=== PATIENT | female | born 1945 | race Caucasian/White ===

== ENCOUNTER 2021-05-08 22:34 | Emergency (ER) | payer MEDICARE ==
[2021-05-08 22:57] VITALS: O2SAT 95
[2021-05-09 00:26] LABS: Absolute Neutrophil Ct (ANC) 6.32 (1.4-6.9); BASOPHIL % 0.3 % (0.0-0.4); Basophil (Absolute #) 0.03 (0-0.4); Eosinophil % 1.3 % (0.00-5.0); Eosinophil (Absolute #) 0.12 (0-0.5); Hematocrit 35.5 % (35-47); Hemoglobin 11.3 gm/dl (12.0-16.0); Lymphocytes % 24.3 % (24.0-44.0); Mean Cell Volume 95.7 fl (78-100); Mean Corpuscular Hemoglobin 30.5 pg (26-32); Mean Corpuscular Hgb Concent. 31.8 g/dl (32-36); Mean Platelet Volume 8.5 fl (7.5-11.0); Monocyte (Absolute #) 0.71 (0.0-1.3); Monocytes % 7.5 % (0.0-12.0); Neutrophil % 66.6 % (36.0-66.0); Platelet Count 523 K/mm3 (150-450); Red Blood Count 3.71 M/mm3 (4.1-5.4); White Blood Count 9.5 K/mm3 (4.0-10.5)
[2021-05-09 00:40] LABS: ALKALINE PHOSPHATASE 68 U/L (38-126); ANION GAP 12.7 MEQ/L (5-15); BLOOD UREA NITROGEN 14 mg/dL (7-17); CHLORIDE 97 mmol/L (98-107); Calcium 9.3 mg/dL (8.4-10.2); Carbon Dioxide 24 mmol/L (22-30); Creatinine 1 0.58 mg/dL (0.52-1.04); EST GLOMERULAR FILTRATION RATE > 60.0 ML/MIN; Glucose 168 mg/dL (74-106); LIPASE 61 U/L (23-300); Potassium 3.7 mmol/L (3.5-5.1); SGOT/AST 20 U/L (14-36); SGPT/ALT 10 U/L (0-35); SODIUM 130 mmol/L (137-145); Total Protein 6.5 g/dL (6.3-8.2)
[2021-05-09 00:40] LABS: Appearance SLIGHTLY CLOUDY (CLEAR); Bilirubin NEGATIVE (NEGATIVE); Blood SMALL Ery/ul (0-5); Epithelial Cells RARE /HPF (FEW); Glucose NEGATIVE (NEGATIVE); Ketones NEGATIVE (NEGATIVE); Leukocyte Esterase NEGATIVE (NEGATIVE); Mucus SLIGHT /HPF (NEGATIVE); Nitrite NEGATIVE (NEGATIVE); Protein,Urine Dip NEGATIVE (Negative); RBC 0-2 /HPF (0-2); Urobilinogen NEGATIVE mg/dL (0-1)
--- NOTE | 2021-05-09 01:09 | ERPHSYRPT ---
- History of Present Illness Time Seen by Provider: 05/08/21 23:00 Source: patient Patient Subjective Stated Complaint: Patient states " I have been having right side/flank pain for the last 2 weeks. I have been to the [facility] and to my AURICULAR THERAPIST and I just had my urine checked today and they said it was fine. I do have a gall bladder ultrasound scheduled for Friday. I have been on 3 different ATB s allegra March and I am starting to get aggravated with the pain and why its not getting any better." Triage Nursing Assessment: Patient arrived to ED and ambulated to room without difficulty. Gait steady. Patient A/O times 4. Patient able to follow instructions without difficulty. Lungs clear bilateral A/P throughout. Patient denies SOB but does state when she takes in a breath that is when her right side/flank flares up with sharp pains. Patient denies chest pain. + BS times 4 quads. ABD sof, round, non-distended. Upon palpitation and pushing into ABD patient denies any pain or discomfort. Patient states she does have a HX of constipation. Patient states her last BM was yesterday and it was normal for her. Patient states her appetite and fluid intake has been normal. Patient denied any pain or burning upon urination. Urine collected upon arival and clear yellow color noted. No odor present. + Radial and pedal pulses noted bilateral. No dependent edema noted. Patient V/S upon arrival WNL. Physician History: Patient is a 76-year-old female presents to our emergency department for evaluation of right-sided flank pain. Patient states that symptoms started approximately 2 weeks ago. She had a UA performed at an urgent care. Patient w as advised she had a urinary tract infection. Patient states she was treated with antibiotics with short-term improvement in symptoms resolved. Patient followed up with her primary care doctor who advised her to have a gallbladder ultrasound and abdominal x-ray. Patient is here tonight because she is frustrated that the pain is not improving. Patient is otherwise healthy. No trauma. No fever. No nausea or vomiting. Patient had a bowel movement yesterday which was reportedly normal. No bloody nonbilious. Patient voices no other complaints or concerns at this time. Timing/Duration: week(s) (2 weeks) Severity: moderate Modifying Factors: Improves With: nothing Associated Symptoms: denies symptoms Allergies/Adverse Reactions: No Known Drug Allergies Allergy (Unverified 05/08/21 22:57) Home Medications: Metformin HCl [Glucophage Xr] 500 mg PO DAILY 11/30/13 [History] Oxybutynin Chloride [Oxybutynin Chloride ER] 10 mg PO DAILY 05/08/21 [History] Pravastatin Sodium 20 mg PO DAILY 05/08/21 [History] lisinopriL [Zestril] 2.5 mg PO DAILY 05/08/21 [History] Hx Tetanus, Diphtheria Vaccination/Date Given: No Hx Influenza Vaccination/Date Given: Yes Hx Pneumococcal Vaccination/Date Given: No Immunizations Up to Date: Yes Travel Risk - International Travel Have you traveled outside of the country in past 3 weeks: No - Coronavirus Screening Are you exhibiting any of the following symptoms?: No Close contact with a COVID-19 positive Pt in past 14-21 Days: No - Vaccine Status Have you recieved a Covid-19 vaccination: Yes 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 - Vaccination Dates Date of 2cond Vaccination (if applicable): 01/29/21 - Review of Systems Constitutional: No Symptoms, No Fever, No Chills Eyes: No Symptoms Ears, Nose, & Throat: No Symptoms Respiratory: No Symptoms, No Cough, No Dyspnea Cardiac: No Symptoms, No Chest Pain, No Edema, No Syncope Abdominal/Gastrointestinal: No Symptoms, No Abdominal Pain, No Nausea, No Vomiting, No Diarrhea Genitourinary Symptoms: No Symptoms, No Dysuria Musculoskeletal: No Symptoms, No Back Pain, No Neck Pain Skin: No Symptoms, No Rash Neurological: No Symptoms, No Dizziness, No Focal Weakness, No Sensory Changes Psychological: No Symptoms Endocrine: No Symptoms Hematologic/Lymphatic: No Symptoms Immunological/Allergic: No Symptoms All Other Systems: Reviewed and Negative - Past Medical History Pertinent Past Medical History: Yes Neurological History: No Pertinent History ENT History: No Pertinent History Cardiac History: High Cholesterol, Hypertension Respiratory History: No Pertinent History Endocrine Medical History: Diabetes Type II Musculoskeletal History: No Pertinent History GI Medical History: No Pertinent History History: No Pertinent History Psycho-Social History: No Pertinent History Female Reproductive Disorders: No Pertinent History - Past Surgical History Past Surgical History: Yes Neuro Surgical History: No Pertinent History Cardiac: No Pertinent History Respiratory: No Pertinent History Gastrointestinal: No Pertinent History Genitourinary: No Pertinent History Musculoskeletal: No Pertinent History Female Surgical History: No Pertinent History, Other Other Surgical History: HX Cyst taken off ovary - Social History Smoking Status: Never smoker Exposure to second hand smoke: Yes Drug Use: none Patient Lives Alone: No - Female History Hx Last Menstrual Period: POST Hx Now: No - Nursing Vital Signs Nursing Vital Signs: Initial Vital Signs Temperature 98.1 F 05/08/21 22:55 Pulse Rate 86 05/08/21 22:55 Respiratory Rate 18 05/08/21 22:55 Blood Pressure 144/97 05/08/21 22:55 O2 Sat by Pulse Oximetry 95 05/08/21 22:55 Pain Scale Pain Intensity 6 - Physical Exam General Appearance: no apparent distress, alert Eye Exam: PERRL/EOMI, eyes nml inspection Ears, Nose, Throat Exam: normal ENT inspection, TMs normal, pharynx normal, moist mucous membranes Neck Exam: normal inspection, non-tender, supple, full range of motion Respiratory Exam: normal breath sounds, lungs clear, No respiratory distress Cardiovascular Exam: regular rate/rhythm, normal heart sounds, normal peripheral pulses Gastrointestinal/Abdomen Exam: soft, normal bowel sounds, No tenderness, No mass Back Exam: normal inspection, normal range of motion, No CVA tenderness, No vertebral tenderness Extremity Exam: normal inspection, normal range of motion, pelvis stable Neurologic Exam: alert, oriented x 3, cooperative, normal mood/affect, nml cerebellar function, nml station & gait, sensation nml, No motor deficits Skin Exam: normal color, warm, dry, No rash Lymphatic Exam: No adenopathy SpO2 Interpretation: normal SpO2: 95 O2 Delivery: Room Air - Course Nursing assessment & vital signs reviewed: Yes EKG Interpreted by Me: RATE (73), Sinus Rhythm, NORMAL AXIS, NORMAL INTERVALS - CT Exams Chest CT Interpretation: Tele-radiologist Report (No early embolic disease. Mild cardiomegaly. Small hiatal hernia atherosclerotic disease of the coronary arteries. Multilevel degenerative disease of the thoracic spine. Osteopenia) Ordered Tests: Active Orders 24 hr Category Date Time Status EKG-ER Only STAT Care 05/08/21 23:59 Active IV Insertion STAT Care 05/08/21 23:59 Active ABDOMEN AND PELVIS W CONTRAST [CT] Stat Exams 05/09/21 00:00 Taken CHEST WITH CONTRAST [CT] Stat Exams 05/09/21 00:02 Taken TROPONIN Q3H Lab 05/09/21 00:15 Completed TROPONIN Q3H Lab 05/09/21 03:00 Ordered TROPONIN Q3H Lab 05/09/21 06:00 Ordered TROPONIN Q3H Lab 05/09/21 09:00 Ordered TROPONIN Q3H Lab 05/09/21 12:00 Ordered UA W/RFX UR CULTURE Stat Lab 05/09/21 00:10 Completed Lab/Rad Data: Laboratory Result Diagrams 05/08/21 00:15 05/08/21 00:15 Laboratory Results 05/09/21 05/09/21 05/08/21 Range/Units 00:15 00:10 00:15 WBC (4.0-10.5) K/mm3 RBC (4.1-5.4) M/mm3 Hgb (12.0-16.0) gm/dl Hct (35-47) % MCV (78-100) fl MCH (26-32) pg MCHC (32-36) g/dl RDW (11.5-14.0) % Plt Count (150-450) K/mm3 MPV (7.5-11.0) fl Gran % (36.0-66.0) % Eos # (Auto) (0-0.5) Absolute Lymphs (auto) (1.0-4.6) Absolute Monos (auto) (0.0-1.3) Lymphocytes % (24.0-44.0) % Monocytes % (0.0-12.0) % Eosinophils % (0.00-5.0) % Basophils % (0.0-0.4) % Absolute Granulocytes (1.4-6.9) Basophils # (0-0.4) Sodium 130 L (137-145) mmol/L Potassium 3.7 (3.5-5.1) mmol/L Chloride 97 L (98-107) mmol/L Carbon Dioxide 24 (22-30) mmol/L Anion Gap 12.7 (5-15) MEQ/L BUN 14 (7-17) mg/dL Creatinine 0.58 (0.52-1.04) mg/dL Estimated GFR > 60.0 ML/MIN Glucose 168 H (74-106) mg/dL Calcium 9.3 (8.4-10.2) mg/dL Total Bilirubin 0.20 (0.2-1.3) mg/dL AST 20 (14-36) U/L ALT 10 (0-35) U/L Alkaline Phosphatase 68 (38-126) U/L Troponin I < 0.012 (0.000-0.034) ng/mL Serum Total Protein 6.5 (6.3-8.2) g/dL Albumin 4.0 (3.5-5.0) g/dL Lipase 61 (23-300) U/L Urine Color YELLOW (YELLOW) Urine Appearance SLIGHTLY CLOUDY (CLEAR) Urine pH 7.0 (5-6) Ur Specific [place] 1.010 (1.005-1.025) Urine Protein NEGATIVE (Negative) Urine Ketones NEGATIVE (NEGATIVE) Urine Blood SMALL (0-5) Blaise/ul Urine Nitrite NEGATIVE (NEGATIVE) Urine Bilirubin NEGATIVE (NEGATIVE) Urine Urobilinogen NEGATIVE (0-1) mg/dL Ur Leukocyte Esterase NEGATIVE (NEGATIVE) Urine WBC (Auto) NONE (0-5) /HPF Urine RBC (Auto) 0-2 (0-2) /HPF U Epithel Cells (Auto) RARE (FEW) /HPF Urine Bacteria (Auto) NONE (NEGATIVE) /HPF Urine Mucus (Auto) SLIGHT (NEGATIVE) /HPF Urine Culture Reflexed NO (NO) Urine Glucose NEGATIVE (NEGATIVE) mg/dL 05/08/21 Range/Units 00:15 WBC 9.5 (4.0-10.5) K/mm3 RBC 3.71 L (4.1-5.4) M/mm3 Hgb 11.3 L (12.0-16.0) gm/dl Hct 35.5 (35-47) % MCV 95.7 (78-100) fl MCH 30.5 (26-32) pg MCHC 31.8 L (32-36) g/dl RDW 12.0 (11.5-14.0) % Plt Count 523 H (150-450) K/mm3 MPV 8.5 (7.5-11.0) fl Gran % 66.6 H (36.0-66.0) % Eos # (Auto) 0.12 (0-0.5) Absolute Lymphs (auto) 2.30 (1.0-4.6) Absolute Monos (auto) 0.71 (0.0-1.3) Lymphocytes % 24.3 (24.0-44.0) % Monocytes % 7.5 (0.0-12.0) % Eosinophils % 1.3 (0.00-5.0) % Basophils % 0.3 (0.0-0.4) % Absolute Granulocytes 6.32 (1.4-6.9) Basophils # 0.03 (0-0.4) Sodium (137-145) mmol/L Potassium (3.5-5.1) mmol/L Chloride (98-107) mmol/L Carbon Dioxide (22-30) mmol/L Anion Gap (5-15) MEQ/L BUN (7-17) mg/dL Creatinine (0.52-1.04) mg/dL Estimated GFR ML/MIN Glucose (74-106) mg/dL Calcium (8.4-10.2) mg/dL Total Bilirubin (0.2-1.3) mg/dL AST (14-36) U/L ALT (0-35) U/L Alkaline Phosphatase (38-126) U/L Troponin I (0.000-0.034) ng/mL Serum Total Protein (6.3-8.2) g/dL Albumin (3.5-5.0) g/dL Lipase (23-300) U/L Urine Color (YELLOW) Urine Appearance (CLEAR) Urine pH (5-6) Ur Specific [place] (1.005-1.025) Urine Protein (Negative) Urine Ketones (NEGATIVE) Urine Blood (0-5) Blaise/ul Urine Nitrite (NEGATIVE) Urine Bilirubin (NEGATIVE) Urine Urobilinogen (0-1) mg/dL Ur Leukocyte Esterase (NEGATIVE) Urine WBC (Auto) (0-5) /HPF Urine RBC (Auto) (0-2) /HPF U Epithel Cells (Auto) (FEW) /HPF Urine Bacteria (Auto) (NEGATIVE) /HPF Urine Mucus (Auto) (NEGATIVE) /HPF Urine Culture Reflexed (NO) Urine Glucose (NEGATIVE) mg/dL - Progress Progress: improved Progress Note: Patient's CAT scan reveals an exophytic low-attenuation lesion in the superior midpole of the right kidney with stranding of the adjacent perinephric fat. This may reflect rupture of a hemorrhagic cyst or possibly underlying hemorrhagic angiomyolipoma. Hemorrhagic renal cell carcinoma is also in the differential although felt to be less likely. Patient referred to Dr. Wakefield of urology for follow-up. Patient is comfortable with this time. Patient requesting discharge patient will follow up as recommended. She will call urology within 48 hours for reevaluation. Portions of this note were created with voice recognition technology. There may be grammatical, spelling, punctuation or sound alike errors 05/09/21 03:04 Will see patient in: office Counseled pt/family regarding: lab results, diagnosis, need for follow-up, rad results - Departure Departure Disposition: Home Clinical Impression: Cardiomegaly, Atherosclerosis, Hiatal hernia, Osteopenia, Arthritis of spine, Right kidney mass, Constipation, Liver lesion Condition: Stable Critical Care Time: No Referrals: GINETTE GREEN [Primary Care Provider] - LUDIVINA BAKER [COURTESY STAFF] - Additional Instructions: Please follow-up with Dr. Baker of within 48 hours for reevaluation. Contact number is area code [phone] Dr. Baker will further evaluate the kidney mass observed on your CAT scan. Discharge/Care Plan KAISERRENEE URIARTE was seen on 05/09/21 in the Emergency Room. The patient was counseled regarding Diagnosis,Lab results, Imaging studies, need for follow up and when to return to the Emergency Room. Prescriptions given: Discharge Note I have spoken with the patient and/or caregivers. I have explained the patient's condition, diagnosis and treatment plan based on the information available to me at this time. I have answered the patient's and/or caregiver's questions and addressed any concerns. The patient and/or caregivers have as good understanding of the patient's diagnosis, condition and treatment plan as can be expected at this point. The vital signs have been stable. The patient's condition is stable and appropriate for discharge from the emergency department. The patient will pursue further outpatient evaluation with the primary care physician or other designated or consulting physician as outlined in the discharge instructions. The patient and/or caregivers are agreeable to this plan of care and follow-up instructions have been explained in detail. The patient and/or caregivers have received these instruction. The patient/and or caregivers are aware that any significant change in condition or worsening of symptoms should prompt an immediate return to this or the closest emergency department or call 911.
[2021-05-09 03:23] VITALS: BP 195/92; PULSE 79
--- NOTE | 2021-05-09 09:31 | XRAY ---
Indication: Chest and abdomen pain. Multiple contiguous axial images obtained through the chest using 80 cc Isovue 370 contrast and PE protocol. Comparison: November 30, 2013. There is good opacification of the pulmonary arteries to include the lobar and segmental branches. No pulmonary embolus. Heart borderline enlarged. Aorta is minimally atherosclerotic without aneurysm/dissection. No pathologic mediastinal/hilar lymphadenopathy. Stable small hiatal hernia. Lungs again demonstrates mild bilateral dependent atelectasis. No suspicious pulmonary mass/nodule, infiltrate, or effusion. Bony thorax intact again with minimal degenerative changes throughout the spine. CT abdomen/pelvis reported separately. Impression: 1. Negative pulmonary embolus. No acute cardiopulmonary abnormalities. 2. Again incidental small hiatal hernia. Comment: Preliminary interpretation was made by [facility]. No critical discrepancy.
--- NOTE | 2021-05-09 09:37 | XRAY ---
Indication: Abdomen pain 2 weeks. Multiple contiguous axial images obtained through the abdomen and pelvis using 80 cc Isovue 370 contrast. Comparison: November 30, 2013. CT chest reported separately. Noncontrasted stomach and bowel loops nonobstructed. Normal appendix. There is again mild diffuse scattered colonic fecal debris throughout, more than before. No free fluid/air. Liver demonstrates 2 stable cysts. Gallbladder contracted. Both kidneys enhance and excrete. Right mid kidney now demonstrates a 1.9 cm cystic mass with adjacent perinephric stranding. Partially differential includes ruptured cyst versus malignancy such as renal cell carcinoma with necrosis. Additional 7 mm right mid to lower renal cortical cyst. No hydronephrosis or hydroureter. Remaining pancreas, spleen, adrenal glands, left kidney, ureters, bladder, and uterus are unremarkable. Mild scattered aortoiliac calcifications. No AAA or pathologic retroperitoneal lymphadenopathy. Osseous structures intact again with mild degenerative changes throughout the spine. Impression: 1. New right mid renal cystic mass with perinephric stranding. Partially differential offered above. Smaller benign-appearing right renal cyst. 2. Worsening diffuse fecal stasis. 3. Stable hepatic cysts. Comment: Preliminary interpretation was made by [facility]. No critical discrepancy.
== END 2021-05-09 03:24 | disposition home or self-care (01) ==
LOC: ED 22:34
DX: I51.7 Cardiomegaly (principal); I70.90 Unspecified atherosclerosis; K44.9 Diaphragmatic hernia without obstruction or gangrene; M85.80 Other specified disorders of bone density and structure, unspecified site; M47.9 Spondylosis, unspecified; N28.89 Other specified disorders of kidney and ureter; K59.00 Constipation, unspecified; K76.9 Liver disease, unspecified; I10 Essential (primary) hypertension; E11.9 Type 2 diabetes mellitus without complications; E78.00 Pure hypercholesterolemia, unspecified; Z79.899 Other long term (current) drug therapy
CPT/HCPCS: 36000; 36415; 71260; 74177; 80053; 81001; 83690; 84484; 85025; 93005; 99284